=== PATIENT | female | born 1980 | race Caucasian/White ===

== ENCOUNTER 2022-09-12 15:22 | Inpatient (IN) ==
[2022-09-12] MEDS ORDERED: Penicillin G Potassium IV 5,000,000 UNITS in NS 0.9% 100 ml BAG 100 ML IVPB ONE (16:05)
[2022-09-12] MEDS ORDERED: miSOPROStol 100 mcg TAB PO ONE ×2 (16:05→21:18)
[2022-09-12] MEDS ORDERED: Lactated Ringers 1000 ml BAG 1,000 ML IV ONE (16:05)
[2022-09-12] MEDS ORDERED: Promethazine INJ(RESTRICTED) 25 MG/ML 1 ml VIAL IV PRN (16:05)
[2022-09-12] MEDS ORDERED: Buffered Lidocaine 1% SYRIN 1 ml INTRADERM ONE (16:05)
[2022-09-12 16:41] LABS: Urine Benzodiazepine Screen None Detected (None Detect); Urine Opiates Screen None Detected (None Detect)
[2022-09-12 17:00] LABS: ABS Lymphocytes 1.2 10^3/uL (1.0-4.8); ABS Monocytes 0.5 10^3/uL (0.0-0.9); ABS Neutrophils 3.9 10^3/uL (1.5-7.6); ABS Nucleated RBC 0.01 10^3/ul; Eosinophil % 0.6 %; Hematocrit 31.8 % (35-45); Lymphocyte % 20.9 %; Mean Corpuscular Hemoglobin 29.1 pg (27-33); Mean Corpuscular Hgb Conc 34.5 g/dL (31-36); Mean Corpuscular Volume 84.2 fL (80-97); Mean Platelet Volume 7.8 fL (7.5-11.2); Nucleated Red Blood Cells % 0.2 /100 WBC (0.0-0.4); Platelet Count 258 10^3/uL (150-450); Red Blood Count 3.77 10^6/uL (3.63-4.92); Red Cell Distribution Width 13.4 % (12-17); White Blood Count 5.6 10^3/uL (3.8-11.8)
[2022-09-12] MEDS: Penicillin G Potassium IV 3,000,000 UNITS in NS 0.9% 100 ml BAG 100 ML IVPB SCH (21:15)
[2022-09-13] MEDS: Penicillin G Potassium IV 3,000,000 UNITS in NS 0.9% 100 ml BAG 100 ML IVPB SCH ×6 (01:48→22:01)
[2022-09-13] MEDS: Lactated Ringers 1000 ml BAG 1,000 ML IV SCH ×3 (02:30→13:22)
[2022-09-13] MEDS ORDERED: OBEPIDURAL (200 ML) 200 ML EPIDURAL ONE (02:38)
[2022-09-13] MEDS ORDERED: Lidocaine 1% w EPI 1:200,000 SDV 30 ML VIAL ONE ×2 (02:43→03:00)
[2022-09-13] MEDS: OBEPIDURAL (200 ML) 200 ML EPIDURAL SCH ×2 (03:44→17:19)
[2022-09-13] MEDS ORDERED: Lactated Ringers 1000 ml BAG 1,000 ML IV ONE (04:46)
[2022-09-13] MEDS ORDERED: Sodium Citrate/Citric Acid LIQ 15 ML UDC PO PRN (04:46)
[2022-09-13] MEDS ORDERED: Phenylephrine 40 mcg/mL 10mL (400mcg) SYRINGE IV PUSH PRN ×2 (04:46)
[2022-09-13] MEDS ORDERED: Lactated Ringers 1000 ml BAG 1,000 ML IV SCH ×2 (05:00→23:00)
[2022-09-13 06:27] LABS: Urine Appearance Clear; Urine Bilirubin Negative (Negative); Urine Blood 2+ (Negative); Urine Color Yellow; Urine Glucose Negative (Negative); Urine Ketones Negative (Negative); Urine Nitrite Negative (Negative); Urine Protein Negative (Negative); Urine Specific Gravity 1.016 (1.002-1.030); Urine Urobilinogen Negative (Negative)
[2022-09-13 06:28] LABS: Urine Bacteria Absent (Absent); Urine Red Blood Cell 3+(>10/hpf) (Absent); Urine White Blood Cell Trace(0-5/hpf) (Absent)
[2022-09-13] MEDS: Oxytocin in LR 20,000 MILLI.UNIT/1,000 ML BAG IV SCH (10:09)
[2022-09-13] MEDS ORDERED: Lidocaine 2% w/ EPI 1:200,000 MPF 20 ML SDV VIAL ONE (17:21)
[2022-09-13] MEDS ORDERED: Dibucaine 1% OINT 28.35 GM TUBE PR PRN (22:54)
[2022-09-13] MEDS ORDERED: Witch Hazel PAD JAR TOPICAL PRN (22:54)
[2022-09-14] MEDS: Oxytocin in LR 20,000 MILLI.UNIT/1,000 ML BAG IV SCH (00:32)
[2022-09-14 04:35] LABS: Urine Appearance Cloudy; Urine Color Red
[2022-09-14] MEDS: Ampicillin ADVAN 2 GM in NS 0.9% 100 ml BAG 100 ML IVPB SCH ×5 (04:35→22:02)
[2022-09-14 04:42] LABS: Urine Specific Gravity 1.014 (1.002-1.030)
[2022-09-14 04:53] LABS: Urine Bacteria Absent (Absent); Urine Red Blood Cell 3+(>10/hpf) (Absent); Urine White Blood Cell Trace(0-5/hpf) (Absent)
[2022-09-14 04:54] LABS: Urine Squamous Epithelial Cell Present (Absent)
[2022-09-14] MEDS: NS 0.9% IVPB SCH (05:07)
[2022-09-14] MEDS: GENTAMICIN ADULT IVPB SCH (05:07)
[2022-09-14 08:50] LABS: ABS Basophils 0.1 10^3/uL (0.0-0.1); ABS Lymphocytes 1.3 10^3/uL (1.0-4.8); ABS Monocytes 1.1 10^3/uL (0.0-0.9); ABS Neutrophils 12.5 10^3/uL (1.5-7.6); ABS Nucleated RBC 0.02 10^3/ul; Hematocrit 30.9 % (35-45); Hemoglobin 10.5 g/dL (11.5-14.3); Lymphocyte % 8.8 %; Mean Corpuscular Hemoglobin 28.6 pg (27-33); Mean Corpuscular Volume 84.2 fL (80-97); Nucleated Red Blood Cells % 0.1 /100 WBC (0.0-0.4); Platelet Count 215 10^3/uL (150-450); Red Blood Count 3.67 10^6/uL (3.63-4.92); Red Cell Distribution Width 13.7 % (12-17)
[2022-09-15] MEDS: Ampicillin ADVAN 2 GM in NS 0.9% 100 ml BAG 100 ML IVPB SCH (04:08)
[2022-09-15] MEDS: GENTAMICIN ADULT IVPB SCH (05:19)
[2022-09-15] MEDS: NS 0.9% IVPB SCH (05:19)
[2022-09-15 08:40] VITALS: BP 122/76
== END 2022-09-15 18:15 | disposition home or self-care (01) | DRG 806 ==
LOC: MCHOBOUT 15:22 → MCHOB 16:05
PROVIDERS: ADMIT Registered Nurse; ATTEND Registered Nurse